=== PATIENT | female | born 1970 | race African-American/Black ===

== ENCOUNTER 2020-01-13 03:13 | Emergency (ER) | payer SELFPAY ==
[~2020-01-13] VITALS: Ht 152.4 cm; Wt 64.0 kg
[~2020-01-13 03:13] MED LIST: NKM; NORCO 5-325 TA1 EACH ORAL; ZOFRAN ODT8 MG ORAL
[2020-01-13 03:25] VITALS: BP 110/73
--- NOTE | 2020-01-13 03:25 | NUR ---
ED Nurse Note: Pt walked into ED from home for c/o abscess to buttock area x 3 days. pt is aaox4, no cardiac or respiratory distress noted.
--- NOTE | 2020-01-13 03:28 | NUR ---
ED Nurse Note: ERMD bedside to examine pt. Female RN bedside as witness.
[2020-01-13] MEDS ORDERED: BACITRACIN ZIN1 EACH TOPIC (03:29)
[2020-01-13] MEDS ORDERED: NORCO 5-325 TA1 EACH ORAL (03:29)
[2020-01-13] MEDS ORDERED: CEPHALEXIN500 MG ORAL (03:29)
[2020-01-13] MEDS ORDERED: IBUPROFEN600 MG ORAL (03:29)
[2020-01-13] MEDS ORDERED: Cephalexin 500mg cap ORAL ONE (03:30)
[2020-01-13] MEDS ORDERED: HYDROcodone/Acetamin 5/325 tab ORAL ONE (03:30)
--- NOTE | 2020-01-13 03:33 | Emergency Room Report ---
History of Present Illness General Chief Complaint: Skin Rash/Abscess Source: Patient Present Illness HPI Patient presents with complaints of pain and swelling just adjacent to the rectal area Patient reports that her daughter was here with the same thing recently She has noticed a discomfort over the past several days and as the pain was worsening she presents to the ER Denies any abdominal pain denies any fevers or chills denies any difficulty with bowel movement Denies any fevers or chills Denies any vaginal discharge Denies any trauma Allergies: Coded Allergies: No Known Allergies (Unverified , 12/02/14) Patient History Past Medical History: see triage record Now: No : 5 Para: 3 Reviewed Nursing Documentation: PMH: Agreed; PSxH: Agreed Nursing Documentation-PMH Past Medical History: No Stated History Review of Systems All Other Systems: negative except mentioned in HPI Physical Exam Vital Signs Date Time Temp Pulse Resp B/P (MAP) Pulse Ox O2 Delivery O2 Flow Rate FiO2 01/13/20 03:16 98.2 91 19 110/73 (85) 97 Room Air Sp02 EP Interpretation: reviewed, normal General Appearance: well appearing, no apparent distress Head: normocephalic, atraumatic Eyes: bilateral eye PERRL, bilateral eye EOMI ENT: EOM grossly intact Neck: supple Respiratory: lungs clear, no respiratory distress, no retraction Cardiovascular #1: regular rate, rhythm Gastrointestinal: non tender Rectal: other - Positive for several external hemorrhoids which are soft, there is also a small pustule approximately half by half centimeter approximately 1 cm lateral on the left side from the perirectal area. No obvious tracking of erythema area is tender to touch Musculoskeletal: normal inspection Neurologic: alert, oriented x3 Psychiatric: normal inspection Skin: other - As above Lymphatic: no adenopathy Medical Decision Making Diagnostic Impression: Primary Impression: folliculitis ER Course Given the history and findings Multiple differentials including but not limited to perirectal abscess, fissures , folliculitis entertained The exam reveals fairly small palpable pustule My suspicion for deeper abscess is low at this time patient will be initiated on oral antibiotics warm soaking And requires close outpatient follow-up Last Vital Signs Date Time Temp Pulse Resp B/P (MAP) Pulse Ox O2 Delivery O2 Flow Rate FiO2 01/13/20 03:16 98.2 91 19 110/73 (85) 97 Room Air Status: improved Disposition: HOME, SELF-CARE Condition: Improved Scripts Hydrocodone Bit/Acetaminophen 5-325* (NORCO 5-325*) 1 Each Tablet 1 TAB ORAL Q6H PRN for For Pain, #12 TAB 0 Refills Prov: Sarina Mcgrath DO 01/13/20 Ibuprofen* (MOTRIN*) 600 Mg Tablet 600 MG ORAL Q8H PRN for For Pain, #20 TAB 0 Refills Prov: Sarina Mcgrath DO 01/13/20 Bacitracin Zinc* (BACITRACIN ZINC*) 1 Each Packet 1 APPLIC TOPIC THREE TIMES A DAY for 7 Days, PACKET Prov: Sarina Mcgrath DO 01/13/20 Cephalexin* (KEFLEX*) 500 Mg Capsule 500 MG ORAL EVERY 6 HOURS for 10 Days, CAP Prov: Sarina Mcgrath DO 01/13/20 Referrals: NOT CHOSEN IPA/,REFERRING (PCP) [facility] Sergo Fuentes [facility] Patient Instructions: Folliculitis Additional Instructions: Patient is provided with the discharge instructions notified to follow up with primary doctor in the next 2-3 days otherwise return to the er with any worsening symptoms. Please note that this report is being documented using [employer] technology. This can lead to erroneous entry secondary to incorrect interpretation by the dictating instrument. Sarina Mcgrath DO Jan 13, 2020 03:33
[2020-01-13 03:45] VITALS: BP 115/79
--- NOTE | 2020-01-13 03:45 | NUR ---
ER DISCHARGE NOTE: Patient is cleared to be discharged per ERMD, pt is aox4, on room air, with stable vital signs. pt was given dc and prescription instructions, pt was able to verbalize understanding, pt id band removed. pt is able to ambulate with steady gait. pt took all belongings.
== END 2020-01-13 03:45 | disposition home or self-care (01) ==
LOC: EMR 03:28
DX: L73.9 Follicular disorder, unspecified (principal)
CPT/HCPCS: 99282